=== PATIENT | female | born 1980 | race African-American/Black ===

== ENCOUNTER → 2022-04-25 08:04 | Outpatient (CLI) | payer OTHER, SELFPAY ==
--- NOTE | ~2022-04-25 | US_ITS ---
EXAMINATION: US pelvic complete w TV DATE: 04/25/2022 08:39 INDICATION: Anemia Comparison:No prior studies for comparison. TECHNIQUE: Multiple transabdominal and endovaginal sonographic images of the pelvis performed. FINDINGS: The uterus measures 14 x 6.4 x 7.4 cm. The endometrial complex measures 6 mm. The right ovary measures 4.2 x 3.8 x 3.9 cm and the left ovary measures 3.3 x 2.3 x 2.8 cm. There ar e small follicles in each ovary. Normal doppler signal in both ovaries. There is no free fluid in the pelvis. There are no abnormal masses seen on either side. IMPRESSION: 1. Unremarkable pelvic ultrasound. Reviewed, dictated and finalized at location A.
== END ==
PROVIDERS: PCP Internal Medicine; Visit Provider Internal Medicine
DX: D50.9 Iron deficiency anemia, unspecified (principal)
CPT/HCPCS: 76830; 76856